=== PATIENT | female | born 1945 | race Caucasian/White ===

== ENCOUNTER 2023-04-13 21:46 | Emergency (ER) | payer MEDICARE, OTHER ==
[2023-04-13 23:16] LABS: #Basophils 0.1 10x3/uL (0.0-0.2); #Eosinphils 0.1 10x3/uL (0.0-0.5); #Monocytes 1.2 10x3/uL (0.0-1.1); %Basophils 0.4 % (0.0-2.0); %Eosinophils 0.5 % (0.0-6.0); %Lymphocytes 18.4 % (18.0-47.0); %Monocytes 10.4 % (0.0-10.0); %Neutrophils 69.3 % (40.0-75.0); Hemoglobin 11.2 g/dL (12.0-15.5); Mean Corpuscular HGB CONC 31.3 g/dL (32.0-36.0); Mean Corpuscular Hemoglobin 27.1 pg (27.0-33.0); Mean Corpuscular Volume 86.5 fl (81.6-98.3); Platelet Count 548 10x3/uL (150-450); RBC Distribution Width 18.6 % (11.5-14.5); Red Blood Cell (RBC) Count 4.14 10x6/uL (3.90-5.03); White Blood Cell (WBC) Count 11.6 10x3/uL (3.5-10.5)
[2023-04-13 23:22] LABS: ALT (SGPT) 17 U/L (8-55); AST (SGOT) 27 U/L (5-34); Albumin 4.2 g/dL (3.4-4.8); Alkaline Phosphatase 56 U/L (40-110); Anion Gap 16 mmol/L (10-20); BUN (Urea Nitrogen) 33 mg/dL (9.8-20.1); Bilirubin, Total 0.6 mg/dL (0.2-1.2); Calc. Creatinine Clearance 0 mL/min (70-130); Calcium 11.3 mg/dL (7.8-10.44); Carbon Dioxide 26 mmol/L (23-31); Chloride 104 mmol/L (98-107); Estimated GFR 26; Globulin 2.4 g/dL (2.4-3.5); Glucose 107 mg/dL (83-110); Potassium 4.8 mmol/L (3.5-5.1); Protein, Total 6.6 g/dL (5.8-8.1); Sodium 141 mmol/L (136-145)
[2023-04-13 23:31] LABS: Bilirubin Neg (Negative); Blood, Urine 10 (Negative); Clarity Clear (Clear); Glucose, Urine (Dipstick) Normal (Negative); Ketone, Urine Negative (Negative); Leukocyte Negative (Negative); Nitrite Negative (Negative); Protein, Urine (Dipstick) 30 mg/dl (Neg-Trace); Urobilinogen Normal mg/dL (Less than 2)
[2023-04-13 23:38] LABS: Bacteria/HPF None Seen HPF (None Seen); RBC/HPF 0-3 HPF (0-3); Squamous Epithelial 0-3 HPF (0-3); WBC/HPF 0-3 HPF (0-3)
[2023-04-13 23:44] LABS: CKMB 1.3 ng/mL (0-6.6)
[2023-04-14 03:32] LABS: Troponin I 0.025 ng/mL (< 0.028)
== END 2023-04-14 03:50 | disposition home or self-care (01) ==
LOC: CSHERS 21:46
DX: S30.0XXA Contusion of lower back and pelvis, initial encounter (principal); R29.6 Repeated falls; R53.1 Weakness; E78.5 Hyperlipidemia, unspecified; E03.9 Hypothyroidism, unspecified; I13.0 Hypertensive heart and chronic kidney disease with heart failure and stage 1 through stage 4 chronic kidney disease, or unspecified chronic kidney disease; N18.6 End stage renal disease; I50.9 Heart failure, unspecified; Z87.891 Personal history of nicotine dependence; Z79.899 Other long term (current) drug therapy; Z79.82 Long term (current) use of aspirin
CPT/HCPCS: 36415; 70450; 71045; 72072; 72100; 80053; 81003; 81015; 82553; 83605; 84484; 85025; 96360; 96361

== ENCOUNTER 2023-12-17 17:48 | Inpatient (IN) | payer MEDICARE ==
[2023-12-17 21:14] LABS: #Basophils 0.1 10x3/uL (0.0-0.2); #Eosinphils 0.2 10x3/uL (0.0-0.5); #Neutrophils 5.5 10x3/uL (1.5-8.4); %Basophils 0.6 % (0.0-2.0); %Eosinophils 2.3 % (0.0-6.0); %Lymphocytes 30.1 % (18.0-47.0); %Monocytes 10.5 % (0.0-10.0); Hematocrit 37.6 % (34.9-44.5); Hemoglobin 11.7 g/dL (12.0-15.5); Mean Corpuscular HGB CONC 31.1 g/dL (32.0-36.0); Mean Corpuscular Hemoglobin 27.1 pg (27.0-33.0); Mean Platelet Volume 10.5 fl (7.4-10.4); Platelet Count 338 10x3/uL (150-450); RBC Distribution Width 14.5 % (11.5-14.5); Red Blood Cell (RBC) Count 4.32 10x6/uL (3.90-5.03); White Blood Cell (WBC) Count 9.9 10x3/uL (3.5-10.5)
[2023-12-17 21:21] LABS: Bilirubin Neg (Negative); Blood, Urine Negative (Negative); Clarity Clear (Clear); Glucose, Urine (Dipstick) Normal (Negative); Ketone, Urine 5 mg/dL (Negative); Leukocyte Negative (Negative); Nitrite Negative (Negative); Protein, Urine (Dipstick) 30 mg/dl (Neg-Trace); Specific Gravity, Urine 1.025 (1.005-1.030); Urobilinogen Normal mg/dL (Less than 2)
[2023-12-17 21:32] LABS: Amphetamine Not Detected (NotDetected); Barbiturates Screen Not Detected (NotDetected); Benzodiazepine Screen Not Detected (NotDetected); Cocaine Metabolite Screen Not Detected (NotDetected); Methadone Not Detected (NotDetected); Methamphetamine Not Detected (NotDetected); Opiate Screen Not Detected (NotDetected); Oxycodone Screen Not Detected (NotDetected); Phencyclidine (PCP) Not Detected (NotDetected); THC/Cannabinoid Screen Not Detected (NotDetected); Tricyclic Screen Not Detected (NotDetected)
[2023-12-17 21:34] LABS: Acetaminophen Less than 10 mcg/mL (10.0-30.0); Alcohol Less than 10.0 mg/dL (Less than 10); Salicylate Less than 8.0 mg/dL (15.0-30.0)
[2023-12-17 21:35] LABS: ALT (SGPT) 16 U/L (8-55); AST (SGOT) 27 U/L (5-34); Albumin 4.1 g/dL (3.4-4.8); Alkaline Phosphatase 76 U/L (40-110); Anion Gap 19 mmol/L (10-20); BUN (Urea Nitrogen) 39 mg/dL (9.8-20.1); Bilirubin, Total 0.6 mg/dL (0.2-1.2); Calc. Creatinine Clearance 0 mL/min (70-130); Carbon Dioxide 22 mmol/L (23-31); Chloride 107 mmol/L (98-107); Estimated GFR 18; Globulin 3.5 g/dL (2.4-3.5); Glucose 109 mg/dL (83-110); Potassium 4.5 mmol/L (3.5-5.1); Protein, Total 7.6 g/dL (5.8-8.1); Sodium 143 mmol/L (136-145)
[2023-12-17 21:37] LABS: Critical Call Chemistry ERS.EG AT 21:35
[2023-12-17 21:44] LABS: Bacteria/HPF Rare-Few HPF (None Seen); CAUTI Indications for Culture Pelvic or flank pain; RBC/HPF 0-3 HPF (0-3); Squamous Epithelial 0-3 HPF (0-3); WBC/HPF 0-3 HPF (0-3)
[2023-12-17 21:45] LABS: Mucous/LPF 1+ LPF (<2+)
[2023-12-17 21:47] LABS: Urine Culture Reflex No No
[2023-12-17 23:04] LABS: Free T4 (Free Thyroxine) 1.99 ng/dL (0.70-1.48)
[2023-12-18] MEDS ORDERED: Ondansetron PF 4 MG/2 ML Vial IVP PRN (00:40)
[2023-12-18] MEDS ORDERED: Senokot S 8.6-50 MG TAB PO PRN (00:40)
[2023-12-18] MEDS ORDERED: Guaifenesin DM 100-10/5 ML UDCUP PO PRN (00:40)
[2023-12-18] MEDS ORDERED: Albuterol 2.5 MG (3 mL) NEB NEB PRN (00:50)
[2023-12-18 00:54] LABS: Troponin I 0.059 ng/mL (< 0.028)
[2023-12-18 02:43] VITALS: BMI 25.6
[2023-12-18] MEDS ORDERED: FLU VACC QS2023(65UP)/MF59C/PF 60 MCG/0.5 ML SYRINGE IM ONE (03:15)
[2023-12-18] MEDS: Calcitonin,Salmon,Synthetic 400 UNITS/2 ML SC SCH ×2 (03:55→17:00)
[2023-12-18] MEDS ORDERED: Zoledronic Acid 4 MG, Admixture Fee 1 EACH in Sodium Chloride 0.9% 100 ML IVPB SCH (04:00)
[2023-12-18] MEDS: Sodium Chloride 0.9% 1,000 ML IV SCH ×4 (04:02→21:42)
[2023-12-18] MEDS: Mometasone/Formoterol 60 PUFF AER INH SCH ×2 (06:30→19:51)
[2023-12-18 08:02] LABS: #Basophils 0.1 10x3/uL (0.0-0.2); #Eosinphils 0.1 10x3/uL (0.0-0.5); #Monocytes 1.1 10x3/uL (0.0-1.1); #Neutrophils 9.8 10x3/uL (1.5-8.4); %Basophils 0.6 % (0.0-2.0); %Eosinophils 0.5 % (0.0-6.0); %Lymphocytes 13.6 % (18.0-47.0); %Monocytes 8.8 % (0.0-10.0); %Neutrophils 75.9 % (40.0-75.0); Hematocrit 35.2 % (34.9-44.5); Hemoglobin 11.2 g/dL (12.0-15.5); Mean Corpuscular HGB CONC 31.8 g/dL (32.0-36.0); Mean Corpuscular Hemoglobin 27.9 pg (27.0-33.0); Mean Corpuscular Volume 87.6 fl (81.6-98.3); Mean Platelet Volume 10.7 fl (7.4-10.4); Platelet Count 314 10x3/uL (150-450); RBC Distribution Width 14.6 % (11.5-14.5); Red Blood Cell (RBC) Count 4.02 10x6/uL (3.90-5.03); White Blood Cell (WBC) Count 12.9 10x3/uL (3.5-10.5)
[2023-12-18 08:28] LABS: Anion Gap 17 mmol/L (10-20); BUN (Urea Nitrogen) 35 mg/dL (9.8-20.1); Calc. Creatinine Clearance 21 mL/min (70-130); Calcium 12.2 mg/dL (7.8-10.44); Carbon Dioxide 18 mmol/L (23-31); Chloride 108 mmol/L (98-107); Estimated GFR 21; Glucose 144 mg/dL (83-110); Potassium 4.3 mmol/L (3.5-5.1); Sodium 139 mmol/L (136-145)
[2023-12-18] MEDS: Amlodipine 5 MG TAB PO SCH (09:20)
[2023-12-18] MEDS: Loratadine 10 MG TAB PO SCH (09:21)
[2023-12-18] MEDS: Aspirin 81 mg Enteric Coated Tablet PO SCH (09:21)
[2023-12-18 14:26] LABS: Reference Lab Name LABCORP
[2023-12-18] MEDS ORDERED: Lorazepam 2 MG/ML VIAL SLOW IVP PRN (14:56)
[2023-12-18 15:39] LABS: Phosphorus 3.3 mg/dL (2.3-4.7)
[2023-12-18 15:41] LABS: Magnesium 1.6 mg/dL (1.6-2.6)
[2023-12-18 18:14] LABS: SARS-CoV-2 NAA Rapid Test DETECTED (NotDetected)
[2023-12-18] MEDS: Simvastatin 10 MG TAB PO SCH (21:41)
[2023-12-18] MEDS: Famotidine 20 MG TAB PO SCH (21:41)
[2023-12-18] MEDS: Enoxaparin 30 MG (0.3 mL) SYRINGE SC SCH (21:41)
[2023-12-18] MEDS: traZODone HCl 50 MG TAB PO SCH (21:42)
[2023-12-19] MEDS: Fosphenytoin Sodium 150 MG in Sodium Chloride 0.9% 50 ML IVPB SCH ×2 (04:11→17:31)
[2023-12-19] MEDS: Calcitonin,Salmon,Synthetic 400 UNITS/2 ML SC SCH (04:11)
[2023-12-19 04:20] LABS: Anion Gap 13 mmol/L (10-20); BUN (Urea Nitrogen) 26 mg/dL (9.8-20.1); Calc. Creatinine Clearance 30 mL/min (70-130); Calcium 9.9 mg/dL (7.8-10.44); Carbon Dioxide 19 mmol/L (23-31); Chloride 111 mmol/L (98-107); Estimated GFR 33; Glucose 168 mg/dL (83-110); Magnesium 1.4 mg/dL (1.6-2.6); Potassium 3.7 mmol/L (3.5-5.1); Sodium 139 mmol/L (136-145)
[2023-12-19 04:35] LABS: #Basophils 0.1 10x3/uL (0.0-0.2); #Monocytes 1.4 10x3/uL (0.0-1.1); #Neutrophils 11.4 10x3/uL (1.5-8.4); %Basophils 0.3 % (0.0-2.0); %Eosinophils 0.3 % (0.0-6.0); %Monocytes 9.9 % (0.0-10.0); %Neutrophils 77.7 % (40.0-75.0); Hematocrit 30.6 % (34.9-44.5); Hemoglobin 9.8 g/dL (12.0-15.5); Mean Corpuscular Hemoglobin 28.1 pg (27.0-33.0); Mean Corpuscular Volume 87.7 fl (81.6-98.3); Mean Platelet Volume 11.3 fl (7.4-10.4); Platelet Count 258 10x3/uL (150-450); RBC Distribution Width 14.6 % (11.5-14.5); Red Blood Cell (RBC) Count 3.49 10x6/uL (3.90-5.03); White Blood Cell (WBC) Count 14.6 10x3/uL (3.5-10.5)
[2023-12-19] MEDS: Sodium Chloride 0.9% 1,000 ML IV SCH (06:58)
[2023-12-19] MEDS: Mometasone/Formoterol 60 PUFF AER INH SCH ×2 (07:35→20:00)
[2023-12-19] MEDS: Aspirin 81 mg Enteric Coated Tablet PO SCH (08:38)
[2023-12-19] MEDS: Amlodipine 5 MG TAB PO SCH (08:38)
[2023-12-19] MEDS ORDERED: Benzonatate 100 MG CAP PO PRN (09:08)
[2023-12-19] MEDS ORDERED: Ventolin HFA Inhaler 60 PUFF INHALER INH PRN (09:52)
[2023-12-19 10:30] LABS: CRP (Inflammatory) 6.85 mg/dL (= or < 0.5)
[2023-12-19] MEDS ORDERED: Fosfomycin 3 GM/Packet PO SCH (10:30)
[2023-12-19] MEDS ORDERED: Sodium Chloride 0.9% 1,000 ML IV SCH (12:27)
[2023-12-19] MEDS ORDERED: Magnesium 2 GM/50 ML(in water) 2 GM in Premix 1 BAG IVPB SCH ×2 (12:30→13:30)
[2023-12-19] MEDS: Acetaminophen 325 MG TAB PO PRN (17:32)
[2023-12-19] MEDS: Enoxaparin 30 MG (0.3 mL) SYRINGE SC SCH (21:44)
[2023-12-19] MEDS: Simvastatin 10 MG TAB PO SCH ×2 (21:45→21:48)
[2023-12-19] MEDS: traZODone HCl 50 MG TAB PO SCH (21:45)
[2023-12-19] MEDS: Melatonin 3 MG TAB PO SCH (21:47)
[2023-12-19] MEDS: Famotidine 20 MG TAB PO SCH (21:47)
[2023-12-20 04:26] LABS: Free T4 (Free Thyroxine) 1.44 ng/dL (0.70-1.48); Thyroid Stimulating Hormone 0.0672 uIU/mL (0.35-4.94)
[2023-12-20] MEDS: Fosphenytoin Sodium 150 MG in Sodium Chloride 0.9% 50 ML IVPB SCH ×2 (04:39→16:16)
[2023-12-20 04:42] LABS: #Basophils 0.1 10x3/uL (0.0-0.2); #Eosinphils 0.1 10x3/uL (0.0-0.5); #Monocytes 1.6 10x3/uL (0.0-1.1); #Neutrophils 12.9 10x3/uL (1.5-8.4); %Basophils 0.4 % (0.0-2.0); %Eosinophils 0.7 % (0.0-6.0); %Lymphocytes 11.2 % (18.0-47.0); %Monocytes 9.3 % (0.0-10.0); %Neutrophils 77.6 % (40.0-75.0); Hematocrit 30.3 % (34.9-44.5); Hemoglobin 9.7 g/dL (12.0-15.5); Mean Corpuscular Volume 87.3 fl (81.6-98.3); Mean Platelet Volume 11.3 fl (7.4-10.4); Platelet Count 225 10x3/uL (150-450); Red Blood Cell (RBC) Count 3.47 10x6/uL (3.90-5.03); White Blood Cell (WBC) Count 16.6 10x3/uL (3.5-10.5)
[2023-12-20 04:54] LABS: Anion Gap 14 mmol/L (10-20); BUN (Urea Nitrogen) 20 mg/dL (9.8-20.1); Calc. Creatinine Clearance 38 mL/min (70-130); Calcium 8.9 mg/dL (7.8-10.44); Carbon Dioxide 17 mmol/L (23-31); Chloride 115 mmol/L (98-107); Estimated GFR 45; Glucose 123 mg/dL (83-110); Potassium 3.8 mmol/L (3.5-5.1); Sodium 142 mmol/L (136-145)
[2023-12-20 05:03] LABS: CRP (Inflammatory) 21.57 mg/dL (= or < 0.5)
[2023-12-20] MEDS: Mometasone/Formoterol 60 PUFF AER INH SCH ×2 (07:40→19:24)
[2023-12-20] MEDS: Loratadine 10 MG TAB PO SCH (08:32)
[2023-12-20] MEDS: Amlodipine 5 MG TAB PO SCH (08:32)
[2023-12-20] MEDS: Aspirin 81 mg Enteric Coated Tablet PO SCH (08:32)
[2023-12-20 12:15] LABS: Calcitriol (1,25 di-OH Vit D) 30.3 pg/mL (24.8-81.5)
[2023-12-20 15:39] LABS: IgA - Total IgA (Sendout) 211 mg/dL (64-422); Immunoglobulin - G (Sendout) 1026 mg/dL (586-1602); Immunoglobulin - M (Sendout) 65 mg/dL (26-217)
[2023-12-20] MEDS: Acetaminophen 325 MG TAB PO PRN (16:22)
[2023-12-20] MEDS: traZODone HCl 50 MG TAB PO SCH (20:50)
[2023-12-20] MEDS: Famotidine 20 MG TAB PO SCH (20:51)
[2023-12-20] MEDS: Enoxaparin 30 MG (0.3 mL) SYRINGE SC SCH (20:51)
[2023-12-20] MEDS: Simvastatin 10 MG TAB PO SCH (20:51)
[2023-12-20] MEDS: Melatonin 3 MG TAB PO SCH (20:51)
[2023-12-21] MEDS: Fosphenytoin Sodium 150 MG in Sodium Chloride 0.9% 50 ML IVPB SCH ×2 (04:32→17:49)
[2023-12-21 05:48] LABS: #Basophils 0.1 10x3/uL (0.0-0.2); #Eosinphils 0.2 10x3/uL (0.0-0.5); #Monocytes 1.4 10x3/uL (0.0-1.1); #Neutrophils 11.7 10x3/uL (1.5-8.4); %Basophils 0.6 % (0.0-2.0); %Eosinophils 1.3 % (0.0-6.0); %Lymphocytes 10.7 % (18.0-47.0); %Monocytes 9.4 % (0.0-10.0); %Neutrophils 76.6 % (40.0-75.0); Hematocrit 34.2 % (34.9-44.5); Hemoglobin 10.8 g/dL (12.0-15.5); Mean Corpuscular HGB CONC 31.6 g/dL (32.0-36.0); Mean Corpuscular Hemoglobin 27.1 pg (27.0-33.0); Mean Corpuscular Volume 85.7 fl (81.6-98.3); Mean Platelet Volume 11.1 fl (7.4-10.4); Platelet Count 248 10x3/uL (150-450); RBC Distribution Width 15.1 % (11.5-14.5); Red Blood Cell (RBC) Count 3.99 10x6/uL (3.90-5.03); White Blood Cell (WBC) Count 15.3 10x3/uL (3.5-10.5)
[2023-12-21 05:51] LABS: Anion Gap 15 mmol/L (10-20); BUN (Urea Nitrogen) 18 mg/dL (9.8-20.1); Calc. Creatinine Clearance 48 mL/min (70-130); Calcium 8.8 mg/dL (7.8-10.44); Carbon Dioxide 18 mmol/L (23-31); Chloride 115 mmol/L (98-107); Estimated GFR 58; Glucose 130 mg/dL (83-110); Potassium 3.5 mmol/L (3.5-5.1); Sodium 144 mmol/L (136-145)
[2023-12-21] MEDS: Amlodipine 5 MG TAB PO SCH (08:12)
[2023-12-21] MEDS: Aspirin 81 mg Enteric Coated Tablet PO SCH (08:13)
[2023-12-21] MEDS: Mometasone/Formoterol 60 PUFF AER INH SCH ×2 (10:22→19:27)
[2023-12-21] MEDS: Metoprolol Tartrate 25 MG TAB PO SCH ×2 (10:56→21:54)
[2023-12-21 13:49] LABS: Syphilis Antibody Nonreactive (Nonreactive)
[2023-12-21] MEDS: traZODone HCl 50 MG TAB PO SCH (21:54)
[2023-12-21] MEDS: Famotidine 20 MG TAB PO SCH (21:54)
[2023-12-21] MEDS: Melatonin 3 MG TAB PO SCH (21:55)
[2023-12-21] MEDS: Simvastatin 10 MG TAB PO SCH (21:55)
[2023-12-21] MEDS: Enoxaparin 30 MG (0.3 mL) SYRINGE SC SCH (21:56)
[2023-12-22 05:31] LABS: #Basophils 0.1 10x3/uL (0.0-0.2); #Eosinphils 0.3 10x3/uL (0.0-0.5); #Monocytes 1.3 10x3/uL (0.0-1.1); #Neutrophils 8.6 10x3/uL (1.5-8.4); %Basophils 0.9 % (0.0-2.0); %Eosinophils 2.3 % (0.0-6.0); %Lymphocytes 15.9 % (18.0-47.0); %Monocytes 10.2 % (0.0-10.0); %Neutrophils 69.3 % (40.0-75.0); Hematocrit 33.9 % (34.9-44.5); Hemoglobin 11.1 g/dL (12.0-15.5); Mean Corpuscular HGB CONC 32.7 g/dL (32.0-36.0); Mean Corpuscular Volume 85.4 fl (81.6-98.3); Mean Platelet Volume 11.5 fl (7.4-10.4); Platelet Count 281 10x3/uL (150-450); RBC Distribution Width 15.2 % (11.5-14.5); Red Blood Cell (RBC) Count 3.97 10x6/uL (3.90-5.03); White Blood Cell (WBC) Count 12.4 10x3/uL (3.5-10.5)
[2023-12-22 05:35] LABS: Anion Gap 16 mmol/L (10-20); BUN (Urea Nitrogen) 23 mg/dL (9.8-20.1); Calc. Creatinine Clearance 43 mL/min (70-130); Calcium 8.8 mg/dL (7.8-10.44); Carbon Dioxide 16 mmol/L (23-31); Chloride 119 mmol/L (98-107); Estimated GFR 51; Glucose 121 mg/dL (83-110); Magnesium 1.6 mg/dL (1.6-2.6); Potassium 3.9 mmol/L (3.5-5.1); Sodium 147 mmol/L (136-145)
[2023-12-22 05:55] LABS: Thyroid Stimulating Hormone 0.181 uIU/mL (0.35-4.94)
[2023-12-22] MEDS: Fosphenytoin Sodium 150 MG in Sodium Chloride 0.9% 50 ML IVPB SCH ×2 (06:26→15:50)
[2023-12-22] MEDS: Aspirin 81 mg Enteric Coated Tablet PO SCH (08:58)
[2023-12-22] MEDS: Loratadine 10 MG TAB PO SCH (08:58)
[2023-12-22] MEDS: Amlodipine 5 MG TAB PO SCH (08:58)
[2023-12-22] MEDS: Metoprolol Tartrate 25 MG TAB PO SCH ×2 (08:58→21:15)
[2023-12-22] MEDS: Sodium Bicarbonate Tab 325 MG TAB PO SCH ×3 (09:03→21:16)
[2023-12-22] MEDS: Sodium Chloride 0.45% 1,000 ML IV SCH (09:03)
[2023-12-22] MEDS: Mometasone/Formoterol 60 PUFF AER INH SCH ×2 (11:45→20:22)
[2023-12-22] MEDS: Acetaminophen 325 MG TAB PO PRN (15:51)
[2023-12-22] MEDS: Simvastatin 10 MG TAB PO SCH (21:15)
[2023-12-22] MEDS: Melatonin 3 MG TAB PO SCH (21:15)
[2023-12-22] MEDS: traZODone HCl 50 MG TAB PO SCH (21:15)
[2023-12-22] MEDS: Famotidine 20 MG TAB PO SCH (21:15)
[2023-12-22] MEDS: Enoxaparin 30 MG (0.3 mL) SYRINGE SC SCH (21:16)
[2023-12-23 04:55] LABS: #Basophils 0.1 10x3/uL (0.0-0.2); #Eosinphils 0.3 10x3/uL (0.0-0.5); #Monocytes 1.2 10x3/uL (0.0-1.1); #Neutrophils 6.7 10x3/uL (1.5-8.4); %Basophils 1.3 % (0.0-2.0); %Lymphocytes 19.6 % (18.0-47.0); %Monocytes 10.9 % (0.0-10.0); %Neutrophils 63.2 % (40.0-75.0); Hematocrit 35.4 % (34.9-44.5); Hemoglobin 11.3 g/dL (12.0-15.5); Mean Corpuscular HGB CONC 31.9 g/dL (32.0-36.0); Mean Corpuscular Hemoglobin 27.6 pg (27.0-33.0); Mean Corpuscular Volume 86.6 fl (81.6-98.3); Mean Platelet Volume 11.4 fl (7.4-10.4); Platelet Count 313 10x3/uL (150-450); RBC Distribution Width 15.3 % (11.5-14.5); Red Blood Cell (RBC) Count 4.09 10x6/uL (3.90-5.03); White Blood Cell (WBC) Count 10.6 10x3/uL (3.5-10.5)
[2023-12-23 05:06] LABS: Anion Gap 16 mmol/L (10-20); BUN (Urea Nitrogen) 28 mg/dL (9.8-20.1); Calc. Creatinine Clearance 38 mL/min (70-130); Calcium 8.8 mg/dL (7.8-10.44); Carbon Dioxide 18 mmol/L (23-31); Chloride 121 mmol/L (98-107); Estimated GFR 44; Glucose 124 mg/dL (83-110); Magnesium 1.6 mg/dL (1.6-2.6); Potassium 3.6 mmol/L (3.5-5.1)
[2023-12-23 05:13] LABS: Critical Call Chemistry NUR.TL5 @ 0513; Sodium 151 mmol/L (136-145)
[2023-12-23] MEDS: Fosphenytoin Sodium 150 MG in Sodium Chloride 0.9% 50 ML IVPB SCH ×2 (05:29→18:24)
[2023-12-23] MEDS: Sodium Chloride 0.45% 1,000 ML IV SCH ×3 (06:42→17:39)
[2023-12-23] MEDS: Mometasone/Formoterol 60 PUFF AER INH SCH ×2 (07:07→23:07)
[2023-12-23] MEDS: Metoprolol Tartrate 25 MG TAB PO SCH ×2 (11:02→20:35)
[2023-12-23] MEDS: Aspirin 81 mg Enteric Coated Tablet PO SCH (11:02)
[2023-12-23] MEDS: Sodium Bicarbonate Tab 325 MG TAB PO SCH ×2 (11:02→17:40)
[2023-12-23] MEDS: Amlodipine 5 MG TAB PO SCH (11:02)
[2023-12-23 16:49] LABS: T4 4.57 ug/dL (4.87-11.72)
[2023-12-23] MEDS: Melatonin 3 MG TAB PO SCH (20:34)
[2023-12-23] MEDS: Enoxaparin 30 MG (0.3 mL) SYRINGE SC SCH (20:34)
[2023-12-23] MEDS: Famotidine 20 MG TAB PO SCH (20:35)
[2023-12-23] MEDS: Simvastatin 10 MG TAB PO SCH (20:35)
[2023-12-23] MEDS ORDERED: Sodium Bicarbonate Tab 325 MG TAB PO SCH (20:45)
[2023-12-23] MEDS: traZODone HCl 50 MG TAB PO SCH (21:41)
[2023-12-24] MEDS: Sodium Chloride 0.45% 1,000 ML IV SCH ×4 (02:54→23:26)
[2023-12-24] MEDS: Fosphenytoin Sodium 150 MG in Sodium Chloride 0.9% 50 ML IVPB SCH ×2 (05:09→18:01)
[2023-12-24] MEDS: Mometasone/Formoterol 60 PUFF AER INH SCH ×2 (07:35→18:28)
[2023-12-24 07:39] LABS: Anion Gap 14 mmol/L (10-20); BUN (Urea Nitrogen) 21 mg/dL (9.8-20.1); Calc. Creatinine Clearance 45 mL/min (70-130); Calcium 7.5 mg/dL (7.8-10.44); Carbon Dioxide 15 mmol/L (23-31); Chloride 120 mmol/L (98-107); Estimated GFR 54; Glucose 89 mg/dL (83-110); Potassium 3.7 mmol/L (3.5-5.1); Sodium 145 mmol/L (136-145)
[2023-12-24] MEDS: Sodium Bicarbonate Tab 325 MG TAB PO SCH ×3 (10:16→23:26)
[2023-12-24] MEDS: Amlodipine 5 MG TAB PO SCH (10:16)
[2023-12-24] MEDS: Loratadine 10 MG TAB PO SCH (10:17)
[2023-12-24] MEDS: Aspirin 81 mg Enteric Coated Tablet PO SCH (10:17)
[2023-12-24] MEDS: Metoprolol Tartrate 25 MG TAB PO SCH ×2 (10:17→21:24)
[2023-12-24] MEDS: Enoxaparin 30 MG (0.3 mL) SYRINGE SC SCH (21:23)
[2023-12-24] MEDS: Famotidine 20 MG TAB PO SCH (21:24)
[2023-12-24] MEDS: traZODone HCl 50 MG TAB PO SCH (21:24)
[2023-12-24] MEDS: Simvastatin 10 MG TAB PO SCH (21:24)
[2023-12-24] MEDS ORDERED: Sodium Bicarbonate Tab 325 MG TAB PO SCH (21:45)
[2023-12-24] MEDS: Melatonin 3 MG TAB PO SCH (22:02)
[2023-12-25 04:35] LABS: Anion Gap 16 mmol/L (10-20); BUN (Urea Nitrogen) 18 mg/dL (9.8-20.1); Calc. Creatinine Clearance 45 mL/min (70-130); Calcium 7.5 mg/dL (7.8-10.44); Carbon Dioxide 14 mmol/L (23-31); Chloride 120 mmol/L (98-107); Estimated GFR 54; Glucose 110 mg/dL (83-110); Magnesium 1.4 mg/dL (1.6-2.6); Potassium 3.7 mmol/L (3.5-5.1); Sodium 146 mmol/L (136-145)
[2023-12-25] MEDS: Mometasone/Formoterol 60 PUFF AER INH SCH ×2 (07:00→19:15)
[2023-12-25] MEDS: Aspirin 81 mg Enteric Coated Tablet PO SCH (10:31)
[2023-12-25] MEDS: Amlodipine 5 MG TAB PO SCH (10:31)
[2023-12-25] MEDS: Sodium Bicarbonate Tab 325 MG TAB PO SCH ×3 (10:31→21:14)
[2023-12-25] MEDS: Metoprolol Tartrate 25 MG TAB PO SCH ×2 (10:32→21:15)
[2023-12-25] MEDS: Dextrose 5%-Lactated Ringers 1,000 ML IV SCH ×2 (10:44→19:49)
[2023-12-25] MEDS: Magnesium 2 GM/50 ML(in water) 2 GM in Premix 1 BAG IVPB SCH ×2 (13:17→14:15)
[2023-12-25] MEDS: Phenytoin 100 MG (4 mL) UDCUP PO SCH (14:24)
[2023-12-25 17:14] LABS: Anion Gap 12 mmol/L (10-20); BUN (Urea Nitrogen) 15 mg/dL (9.8-20.1); Calc. Creatinine Clearance 46 mL/min (70-130); Calcium 7.1 mg/dL (7.8-10.44); Carbon Dioxide 17 mmol/L (23-31); Chloride 118 mmol/L (98-107); Estimated GFR 56; Glucose 179 mg/dL (83-110); Magnesium 2.5 mg/dL (1.6-2.6); Potassium 3.5 mmol/L (3.5-5.1); Sodium 143 mmol/L (136-145)
[2023-12-25] MEDS: Sodium Chloride 0.45% 1,000 ML IV SCH (20:58)
[2023-12-25] MEDS: Fosphenytoin Sodium 150 MG in Sodium Chloride 0.9% 50 ML IVPB SCH (20:58)
[2023-12-25] MEDS: traZODone HCl 50 MG TAB PO SCH (21:14)
[2023-12-25] MEDS: Famotidine 20 MG TAB PO SCH (21:15)
[2023-12-25] MEDS: Simvastatin 10 MG TAB PO SCH (21:16)
[2023-12-25] MEDS: Melatonin 3 MG TAB PO SCH (21:16)
[2023-12-25] MEDS: Enoxaparin 30 MG (0.3 mL) SYRINGE SC SCH (21:17)
[2023-12-26 05:29] LABS: Hematocrit 34.6 % (34.9-44.5); Hemoglobin 10.8 g/dL (12.0-15.5); MDiff Complete? YES; Mean Corpuscular HGB CONC 31.2 g/dL (32.0-36.0); Mean Corpuscular Hemoglobin 27.3 pg (27.0-33.0); Mean Corpuscular Volume 87.4 fl (81.6-98.3); Mean Platelet Volume 11.4 fl (7.4-10.4); Platelet Count 283 10x3/uL (150-450); RBC Distribution Width 15.9 % (11.5-14.5); Red Blood Cell (RBC) Count 3.96 10x6/uL (3.90-5.03); White Blood Cell (WBC) Count 8.9 10x3/uL (3.5-10.5)
[2023-12-26] MEDS: Phenytoin 100 MG (4 mL) UDCUP PO SCH ×4 (05:36→21:12)
[2023-12-26 05:40] LABS: Anion Gap 15 mmol/L (10-20); BUN (Urea Nitrogen) 15 mg/dL (9.8-20.1); Calc. Creatinine Clearance 34 mL/min (70-130); Calcium 7.6 mg/dL (7.8-10.44); Carbon Dioxide 14 mmol/L (23-31); Chloride 117 mmol/L (98-107); Estimated GFR 38; Glucose 234 mg/dL (83-110); Magnesium 2.3 mg/dL (1.6-2.6); Potassium 4.1 mmol/L (3.5-5.1); Sodium 142 mmol/L (136-145)
[2023-12-26] MEDS: Dextrose 5%-Lactated Ringers 1,000 ML IV SCH ×3 (05:47→18:02)
[2023-12-26 06:22] LABS: Band 11 % (5-11); Eosinophils 2 % (0-10); Lymphocytes 23 % (21-51); Metamyelocyte 4 % (0-0); Monocytes 10 % (0-10); Neutrophil 47 % (42-75); Reactive Lymphocytes 3 % (0-10)
[2023-12-26 06:24] LABS: Large Platelets SLIGHT (None Seen); RBC Morph Comment Within Normal Limits
[2023-12-26] MEDS: Mometasone/Formoterol 60 PUFF AER INH SCH ×2 (06:30→18:55)
[2023-12-26] MEDS ORDERED: Aspirin Chewable 81 MG TAB PO SCH (09:00)
[2023-12-26] MEDS: Amlodipine 5 MG TAB PO SCH (09:23)
[2023-12-26] MEDS: Metoprolol Tartrate 25 MG TAB PO SCH ×2 (09:23→21:13)
[2023-12-26] MEDS: Sodium Bicarbonate Tab 325 MG TAB PO SCH ×3 (09:24→21:13)
[2023-12-26] MEDS: Loratadine 10 MG TAB PO SCH (09:24)
[2023-12-26] MEDS: Enoxaparin 30 MG (0.3 mL) SYRINGE SC SCH (21:12)
[2023-12-26] MEDS: Simvastatin 10 MG TAB PO SCH (21:13)
[2023-12-26] MEDS: Famotidine 20 MG TAB PO SCH (21:13)
[2023-12-26] MEDS: traZODone HCl 50 MG TAB PO SCH (21:13)
[2023-12-26] MEDS: Melatonin 3 MG TAB PO SCH (21:13)
[2023-12-26 23:47] VITALS: BP 118/55; TEMP 97.9
[2023-12-27] MEDS ORDERED: Glucagon 1 MG/ML KIT ONE (04:31)
[2023-12-27 04:36] LABS: Anion Gap 25 mmol/L (10-20); BUN (Urea Nitrogen) 21 mg/dL (9.8-20.1); Calc. Creatinine Clearance 17 mL/min (70-130); Calcium 7.5 mg/dL (7.8-10.44); Carbon Dioxide 9 mmol/L (23-31); Chloride 117 mmol/L (98-107); Critical Call Chemistry NUR.DDB1 @0432; Estimated GFR 17; Glucose 151 mg/dL (83-110); Magnesium 2.5 mg/dL (1.6-2.6); Potassium 5.3 mmol/L (3.5-5.1); Sodium 146 mmol/L (136-145)
[2023-12-27] MEDS: Dextrose 5%-Lactated Ringers 1,000 ML IV SCH (05:17)
[2023-12-27 06:01] LABS: Actual Bicarbonate (HCO3a) 6.8 mEq/L (22-28); Analyzer IN Cardio CS ICU; Base Excess (BEa) -20.5 mEq/L (-2.0 to +3.0); CO2 Tension 20.8 mmHg (35.0-45.0); Calcium, Ionized (arterial) 0.99 mmol/L (1.12-1.30); Carboxyhemoglobin (COHb) 0.1 gm% (0.0-3.0); Hematocrit-ABG 26 % (36.0-47.0); Hemoglobin (Hb) 8.8 g/dL (12.0-16.0); O2 Tension (PaO2), arterial 231.3 mmHg (> 70.0); Potassium - ABG Lab 4.36 mmol/L (3.70-5.30); Puncture Site LFA; pH, Arterial 7.134 (7.35-7.45)
[2023-12-27 08:39] LABS: SARS-CoV-2 NAA Rapid Test DETECTED (NotDetected)
== END 2023-12-27 10:31 | disposition expired | DRG 177 ==
LOC: CSHERS 17:48 → CSHTELE 12-18 02:30 → CSHICU 12-27 05:04
PROVIDERS: ADMIT Student in an Organized Health Care Education/Training Program; ATTEND Internal Medicine
PROC: 4A10X4Z Monitoring of Central Nervous Electrical Activity, External Approach (ICD-10-PCS; principal; 2023-12-24)
PROC: 4A033R1 Measurement of Arterial Saturation, Peripheral, Percutaneous Approach (ICD-10-PCS; 2023-12-27)
DX: U07.1 COVID-19 (principal); G93.41 Metabolic encephalopathy; K85.90 Acute pancreatitis without necrosis or infection, unspecified; Z66 Do not resuscitate; Z51.5 Encounter for palliative care; J12.82 Pneumonia due to coronavirus disease 2019; I13.0 Hypertensive heart and chronic kidney disease with heart failure and stage 1 through stage 4 chronic kidney disease, or unspecified chronic kidney disease; N17.9 Acute kidney failure, unspecified; I5A Non-ischemic myocardial injury (non-traumatic); N39.0 Urinary tract infection, site not specified; I50.32 Chronic diastolic (congestive) heart failure; E87.0 Hyperosmolality and hypernatremia; E87.20 Acidosis, unspecified; F03.90 Unspecified dementia, unspecified severity, without behavioral disturbance, psychotic disturbance, mood disturbance, and anxiety; E03.9 Hypothyroidism, unspecified; E78.5 Hyperlipidemia, unspecified; F41.9 Anxiety disorder, unspecified; J44.9 Chronic obstructive pulmonary disease, unspecified; E83.52 Hypercalcemia; N18.32 Chronic kidney disease, stage 3b; K21.9 Gastro-esophageal reflux disease without esophagitis; I73.9 Peripheral vascular disease, unspecified; M81.0 Age-related osteoporosis without current pathological fracture; E86.0 Dehydration; D63.1 Anemia in chronic kidney disease; E83.51 Hypocalcemia; G40.909 Epilepsy, unspecified, not intractable, without status epilepticus; Z98.890 Other specified postprocedural states; Z90.710 Acquired absence of both cervix and uterus; Z90.49 Acquired absence of other specified parts of digestive tract; Z87.891 Personal history of nicotine dependence; Z88.8 Allergy status to other drugs, medicaments and biological substances; Z88.0 Allergy status to penicillin; Z79.82 Long term (current) use of aspirin; Z79.899 Other long term (current) drug therapy
CPT/HCPCS: 0241U; 36415; 36416; 51701; 70551; 71045; 74018; 74176; 80048; 80053; 80306; 80307; 81001; 82306; 82310; 82330; 82607; 82652; 82805; 83605; 83690; 83735; 84100; 84425; 84436; 84439; 84443; 84481; 84484; 85025; 86140; 86334; 86335; 86780; 87040; 87086; 93005; 93010; 94760; 95816; 95819; J0630; J1650; J3475; J3489; J3490; J7050; Q2009